=== PATIENT | male | born 1960 | race Hispanic/Latino ===

== ENCOUNTER 2019-10-21 07:00 | Inpatient (IN) | payer BC ==
[2019-10-21 07:49] LABS: #Eosinphils 0.2 thou/uL (0.0-0.7); #Lymphocytes 3.4 thou/uL (1.20-3.40); #Monocytes 0.6 thou/uL (0.11-0.59); #Neutrophils 5.3 thou/uL (1.40-6.50); %Basophils 0.3 % (0.0-1.0); %Eosinophils 2.2 % (0.0-10.0); %Lymphocytes 35.9 % (21.0-51.0); %Monocytes 6.5 % (0.0-10.0); %Neutrophils 55.2 % (42.0-75.0); Hemoglobin 15.3 g/dL (14.0-18.0); Mean Corpuscular HGB CONC 34.4 g/dL (32.0-36.0); Mean Corpuscular Hemoglobin 33.9 pg (27.0-31.0); Mean Corpuscular Volume 98.6 fL (78.0-98.0); Mean Platelet Volume 8.3 fL (7.4-10.4); Platelet Count 211 thou/uL (130-400); RBC Distribution Width 11.6 % (11.5-14.5); Red Blood Cell (RBC) Count 4.51 mill/uL (4.70-6.10); White Blood Cell (WBC) Count 9.6 thou/uL (4.8-10.8)
[2019-10-21] MEDS ORDERED: Atropine Sulfate 1 mg/1 ml Vial ONE (08:02)
[2019-10-21] MEDS ORDERED: Atropine Sulfate 1 mg/10 ml Syringe ONE (08:02)
[2019-10-21 08:05] LABS: INR-International Normal Ratio 0.9; Prothrombin Time 12.4 sec (12.0-14.7)
[2019-10-21 08:09] LABS: ALT (SGPT) 37 U/L (8-55); AST (SGOT) 29 U/L (5-34); Albumin 4.3 g/dL (3.5-5.0); Alkaline Phosphatase 118 U/L (40-110); Anion Gap 14 mmol/L (10-20); BUN (Urea Nitrogen) 15 mg/dL (8.4-25.7); Bilirubin, Total 0.5 mg/dL (0.2-1.2); CK (CPK) 196 U/L (30-200); Calc. Creatinine Clearance 0 mL/min (70-130); Calcium 8.8 mg/dL (7.8-10.44); Carbon Dioxide 25 mmol/L (22-29); Chloride 104 mmol/L (98-107); Estimated GFR-MDRD 89; Globulin 2.9 g/dL (2.4-3.5); Glucose 186 mg/dL (70-105); Magnesium 1.9 mg/dL (1.6-2.6); Potassium 3.3 mmol/L (3.5-5.1); Protein, Total 7.2 g/dL (6.0-8.3); Sodium 140 mmol/L (136-145)
[2019-10-21] MEDS ORDERED: Clopidogrel Bisulfate 300 MG TAB ONE (08:10)
[2019-10-21] MEDS ORDERED: Adenosine 6 MG/2 ML VIAL ONE (08:11)
[2019-10-21] MEDS ORDERED: Verapamil 5 MG/2 ML VIAL ONE ×2 (08:11)
[2019-10-21] MEDS ORDERED: Ondansetron PF 4 MG/2 ML Vial ONE (08:18)
[2019-10-21] MEDS ORDERED: Furosemide 40 MG/4 ML VIAL ONE (08:30)
[2019-10-21] MEDS ORDERED: Milk Of Magnesia 30 ML UDCUP PO PRN (08:51)
[2019-10-21] MEDS ORDERED: Zolpidem Tartrate 5 MG TAB PO PRN (08:51)
[2019-10-21] MEDS ORDERED: Acetaminophen/Codeine 30-300mg Tablet PO PRN (08:51)
[2019-10-21] MEDS ORDERED: Sodium Chloride 0.9% 1,000 ML IV SCH (09:00)
[2019-10-21] MEDS ORDERED: Iopamidol 370 76% 50 ML VIAL FS ONE (09:43)
[2019-10-21] MEDS ORDERED: Iopamidol 370 76% 100 ML VIAL ONE (09:43)
[2019-10-21] MEDS ORDERED: Heparin 10,000 UNITS/ 10 ML VIAL ONE (10:09)
[2019-10-21 15:57] VITALS: BMI 26.4
[2019-10-21] MEDS: Clopidogrel Bisulfate 75 MG TAB PO SCH (17:21)
[2019-10-21] MEDS ORDERED: Atorvastatin Calcium 40 MG TAB PO SCH (21:00)
[2019-10-22 03:20] LABS: #Basophils 0.1 thou/uL (0.0-0.2); #Eosinphils 0.1 thou/uL (0.0-0.7); #Lymphocytes 1.8 thou/uL (1.20-3.40); #Monocytes 1.1 thou/uL (0.11-0.59); #Neutrophils 10.1 thou/uL (1.40-6.50); %Basophils 0.5 % (0.0-1.0); %Eosinophils 0.7 % (0.0-10.0); %Lymphocytes 13.6 % (21.0-51.0); %Monocytes 8.3 % (0.0-10.0); Mean Corpuscular HGB CONC 35.1 g/dL (32.0-36.0); Mean Corpuscular Volume 96.9 fL (78.0-98.0); Mean Platelet Volume 8.5 fL (7.4-10.4); Platelet Count 211 thou/uL (130-400); RBC Distribution Width 11.8 % (11.5-14.5); Red Blood Cell (RBC) Count 4.42 mill/uL (4.70-6.10); White Blood Cell (WBC) Count 13.2 thou/uL (4.8-10.8)
[2019-10-22 03:46] LABS: ALT (SGPT) 106 U/L (8-55); AST (SGOT) 360 U/L (5-34); Alkaline Phosphatase 92 U/L (40-110); Anion Gap 11 mmol/L (10-20); BUN (Urea Nitrogen) 9 mg/dL (8.4-25.7); Bilirubin, Total 1.3 mg/dL (0.2-1.2); Calc. Creatinine Clearance 129 mL/min (70-130); Calcium 8.5 mg/dL (7.8-10.44); Carbon Dioxide 23 mmol/L (22-29); Chloride 105 mmol/L (98-107); Estimated GFR-MDRD Greater than 90; Globulin 2.8 g/dL (2.4-3.5); Glucose 124 mg/dL (70-105); Potassium 3.8 mmol/L (3.5-5.1); Protein, Total 6.8 g/dL (6.0-8.3); Sodium 135 mmol/L (136-145)
[2019-10-22] MEDS: Clopidogrel Bisulfate 75 MG TAB PO SCH (08:37)
[2019-10-22] MEDS: Aspirin Chewable 81 MG TAB PO SCH (08:37)
[2019-10-22 09:49] VITALS: BP 132/85
--- NOTE | 2019-10-22 15:13 | CON ---
DATE OF CONSULTATION: 10/22/2019 SUBJECTIVE: Mr. Beck is doing well. No current complaints. OBJECTIVE: VITAL SIGNS: Blood pressure 130/86, pulse 70, temperature 98. LUNGS: Clear to auscultation. HEART: Regular rate and rhythm. ABDOMEN: Soft, nontender, nondistended. EXTREMITIES: No edema. PERTINENT LABORATORY DATA: Hemoglobin 15 and creatinine 0.68. AST and ALT of 360 and 106. IMPRESSION: 1. Acute inferior myocardial infarction. 2. Elevated AST and ALT. 3. Tobacco abuse. RECOMMENDATIONS: 1. Increased AST and ALT is likely due to passive congestion from recent inferior AK and likely partial RV infarct. Continue to monitor closely. We will discontinue statin therapy until AST and ALT return to close to normal. 2. Okay to transfer to telemetry monitoring. Plan is to discharge in a.m. with close outpatient followup if stable. Job ID: [id number]
[2019-10-23 04:28] VITALS: TEMP 98.3
[2019-10-23] MEDS: Aspirin Chewable 81 MG TAB PO SCH (08:14)
[2019-10-23] MEDS: Clopidogrel Bisulfate 75 MG TAB PO SCH (08:14)
[2019-10-23 09:13] LABS: ALT (SGPT) 77 U/L (8-55); AST (SGOT) 156 U/L (5-34); Alkaline Phosphatase 97 U/L (40-110); Anion Gap 11 mmol/L (10-20); BUN (Urea Nitrogen) 14 mg/dL (8.4-25.7); Bilirubin, Total 1.7 mg/dL (0.2-1.2); Calc. Creatinine Clearance 119 mL/min (70-130); Calcium 8.8 mg/dL (7.8-10.44); Carbon Dioxide 23 mmol/L (22-29); Chloride 103 mmol/L (98-107); Estimated GFR-MDRD Greater than 90; Globulin 3.2 g/dL (2.4-3.5); Glucose 110 mg/dL (70-105); Potassium 4.2 mmol/L (3.5-5.1); Protein, Total 7.2 g/dL (6.0-8.3); Sodium 133 mmol/L (136-145)
--- NOTE | 2019-10-27 08:17 | DIS ---
DATE OF ADMISSION: 10/21/2019 DATE OF DISCHARGE: 10/23/2019 DISCHARGE DIAGNOSIS: Acute myocardial infarction. PROCEDURE: Coronary angiography with stent placement to the right coronary artery. HOSPITAL COURSE: Mr. Beck is a 59-year-old gentleman who recently presented with acute onset chest pain. He was found to have ST-segment elevation noted inferiorly. He underwent successful stent placement to the right coronary artery. He was placed in the ICU overnight. He did well. He was then transferred to telemetry monitoring. While on telemetry monitoring, he also did well. DISCHARGE MEDICATIONS: 1. Aspirin 81 q.a.m. 2. Plavix 75 daily. 3. Metoprolol 25 daily. Did not prescribe statin therapy due to elevated AST, ALT. CONDITION ON DISCHARGE: Stable. Job ID: [id number]
== END 2019-10-23 10:15 | disposition home or self-care (01) | DRG 247 ==
LOC: ERS 07:00 → CCU 07:39 → SDC 07:45 → CCU 15:08
PROVIDERS: ADMIT Internal Medicine Cardiovascular Disease; ATTEND Internal Medicine Cardiovascular Disease
PROC: 027034Z Dilation of Coronary Artery, One Artery with Drug-eluting Intraluminal Device, Percutaneous Approach (ICD-10-PCS; principal; 2019-10-21)
PROC: 02C03ZZ Extirpation of Matter from Coronary Artery, One Artery, Percutaneous Approach (ICD-10-PCS; 2019-10-21)
PROC: 4A023N7 Measurement of Cardiac Sampling and Pressure, Left Heart, Percutaneous Approach (ICD-10-PCS; 2019-10-21)
PROC: B2111ZZ Fluoroscopy of Multiple Coronary Arteries using Low Osmolar Contrast (ICD-10-PCS; 2019-10-21)
DX: I21.19 ST elevation (STEMI) myocardial infarction involving other coronary artery of inferior wall (principal); F17.210 Nicotine dependence, cigarettes, uncomplicated; R74.0 Nonspecific elevation of levels of transaminase and lactic acid dehydrogenase [LDH]; Z95.5 Presence of coronary angioplasty implant and graft
CPT/HCPCS: 36415; 76942; 80053; 82550; 83735; 83880; 84484; 85025; 85347; 85610; 85730; 86850; 86900; 86901; 92941; 93005; 93010; 93306; 93458; 93798; 96374; 96376; C1760; C1874; C9606; J0153; J0461; J1644; J1940; J2405; Q9967

== ENCOUNTER 2024-03-29 09:46 | Outpatient (CLI) | payer BC | END 2024-03-29 09:47 | disposition home or self-care (01) | LOC: ULT 09:46 | PROVIDERS: ATTEND Nurse Practitioner Family | DX: E11.65 Type 2 diabetes mellitus with hyperglycemia (principal); R74.8 Abnormal levels of other serum enzymes; K80.20 Calculus of gallbladder without cholecystitis without obstruction; K76.0 Fatty (change of) liver, not elsewhere classified | CPT/HCPCS: 76700 ==